=== PATIENT | male | born 1955 | race Caucasian/White ===

== ENCOUNTER 2017-04-14 15:06 | Day surgery (SDC) | payer MEDICAID ==
[2017-04-14] VITALS (10 sets, daily range): BP systolic 94–152; BP diastolic 60–114
[~2017-04-14] VITALS: Ht 160 cm; Wt 53.1 kg
[~2017-04-14 15:06] MED LIST: ALBU8.5H2 IH; ALPR.25T; ALPR0.5T72 PO; AMLO5TAB2; ASP325TEC PO; ASP81CT PO; ASP81TEC PO; ATR20T; BUDE6HFA IH; CARV12.52 PO; CARV3.122 PO; CHANTIX STARTER PACK; CHOL10002; CLOP75TA PO; CLPD75T; CRV25T; D50KC; DAILY MULTIVIT1 EAC4 PO; DOXY100C2 PO; FAMO20TA73; FLUT1DIS26 IH; FLUT1DIS27 IH; FLUT1DIS3 IH; HYDR-34; HYDR1TAB66 PO; IPRA3AMP19 IH; ISM30TCR PO; LISI-594 PO; LISI10TA PO; LISI40TA PO; MIRT15TA6 PO; MONT10TA24 PO; Oxygen; PNT40TEC PO; PRD10T; PRD20T; PRD20T PO; PROP1TAB77; ROFL500T3 PO; SIMV40TA4 PO; TIOT18CA IH; TIOT18CA PO; TRM50TRX
--- OUTSIDE RECORDS SUMMARY | 2017-04-14 15:11 | XMS REPORT ---
Author Author MAYELIN CADENA [facility] eClinicalWorks Address Unknown Phone Unavailable Care Team Providers Care Olive Packer Name Role Phone MAYELIN CADENA CP Unavailable Allergies No Known Allergies Problems Problem Type Condition ICD-9 Code Onset Dates Condition Status Problem Coronary atherosclerosis of unspecified type of vessel, [place] or graft 414.00 Active Problem Insomnia, unspecified 780.52 Active Problem Anxiety state, unspecified 300.00 Active Problem Chronic pain syndrome 338.4 Active Problem Failure to thrive 783.41 Active Medications Medication Code System Code Instructions Start Date End Date Status Dosage Xanax [facility] [address]-92 1 MG Orally 3 times a day NEEDED FOR ANXIETY November 19, 2014 1 tablet Hydrocodone-Acetaminophen [facility] [address]-91 10-325 MG Orally every 6 hrs November 19, 2014 1 tablet as needed Results No Known Results Summary Purpose eClinicalWorks Submission
--- OUTSIDE RECORDS SUMMARY | 2017-04-14 15:11 | XMS REPORT ---
Author Author MAYELIN CADENA [facility] eClinicalWorks Address Unknown Phone Unavailable Care Team Providers Care Asian Studies Professor Name Role Phone MAYELIN CADENA CP Unavailable Allergies, Adverse Reactions, Alerts Substance Reaction Event Type Grapefruit Flavor Info Not Available Drug Allergy Avelox Info Not Available Drug Allergy Problems Problem Type Condition ICD-9 Code Onset Dates Condition Status Assessment Insomnia, unspecified 780.52 Active Problem Coronary atherosclerosis of unspecified type of vessel, [place] or graft 414.00 Active Problem Insomnia, unspecified 780.52 Active Problem Anxiety state, unspecified 300.00 Active Assessment COPD (chronic obstructive pulmonary disease) 496 Active Assessment Coronary atherosclerosis of unspecified type of vessel, [place] or graft 414.00 Active Problem Chronic pain syndrome 338.4 Active Problem Failure to thrive 783.41 Active Medications Medication Code System Code Instructions Start Date End Date Status Dosage Hydrocodone-Acetaminophen [facility] [address]-66 10-325 MG Orally every 6 hrs November 19, 2014 1 tablet as needed Albuterol [facility] 0 2.5 mg /3 mL (0.083 %) Aug 01, 2014 2.5 mg by Inhalation route 4 times per day Aspirin [facility] 85392-[address]66 81 mg November 08, 2011 take 1 tablet (81 mg ) by oral route once daily Isosorbide Mononitrate CR [facility] [address]-67 30 MG Orally Once a day 1 tablet Simvastatin [facility] [address]-31 40 MG Orally Once a day 1 tablet in the evening Sertraline HCl [facility] [address]-11 50 MG Orally Once a day 1 tablet Plavix [facility] [address]-60 75 MG Orally Once a day 1 tablet Coreg [facility] [address]-55 12.5 mg Apr 23, 2012 1 tablet by Oral route 2 times per day Seroquel XR [facility] [address]-68 50 MG 1 tablet in the evening ProAir HFA [facility] [address]-56 108 (90 Base) MCG/ACT Inhalation every 4 hrs 2 puffs as needed Xanax [facility] [address]-03 1 MG Orally 3 times a day NEEDED FOR ANXIETY November 19, 2014 1 tablet Oxygen ND 0 2 LPM prn at bedtime not defined Lisinopril [facility] [address]-03 10 MG Orally Once a day 1 tablet Symbicort [facility] [address]-97 160 mcg-4.5 mcg/inh Sep 07, 2013 2 puffs by Inhalation route 2 times per day Spiriva HandiHaler [facility] [address]-01 18 MCG Inhalation Once a day December 11, 2014 1 capsule Zantac [facility] [address]-84 150 MG Orally Twice a day 1 tablet Procedures Procedure Coding System Code Date Office Visit, Est Pt., Level 3 CPT-4 73158 Feb 27, 2015 Vital Signs Date/Time: Feb 27, 2015 Temperature 97.6 F Weight 110.4 lbs Height 68 in BMI 16.78 Index Blood Pressure Diastolic 74 mmHg Blood Pressure Systolic 118 mmHg Cardiac Monitoring Heart Rate 82 bpm Results No Known Results Summary Purpose eClinicalWorks Submission
--- OUTSIDE RECORDS SUMMARY | 2017-04-14 15:11 | XMS REPORT ---
Author Author MAYELIN CADENA [facility] eClinicalWorks Address Unknown Phone Unavailable Care Team Providers Care Funeral Director And Embalmer Name Role Phone MAYELIN CADENA CP Unavailable Allergies No Known Allergies Problems Problem Type Condition Code Onset Dates Condition Status Problem Chronic pain syndrome G89.4 Active Problem Anxiety state, unspecified 300.00 Active Problem Anxiety disorder, unspecified F41.9 Active Problem Chronic pain syndrome 338.4 Active Problem Failure to thrive 783.41 Active Problem Coronary atherosclerosis of unspecified type of vessel, [place] or graft 414.00 Active Problem Insomnia, unspecified 780.52 Active Medications Medication Code System Code Instructions Start Date End Date Status Dosage Hydrocodone-Acetaminophen [facility] [address]-28 10-325 MG Orally every 6 hrs November 19, 2014 1 tablet as needed Xanax [facility] [address]-09 1 MG Orally 3 times a day November 19, 2014 1 tablet as needed Results No Known Results Summary Purpose eClinicalWorks Submission
--- OUTSIDE RECORDS SUMMARY | 2017-04-14 15:11 | XMS REPORT ---
Author Author MAYELIN CADENA [facility] eClinicalWorks Address Unknown Phone Unavailable Care Team Providers Care Motel Operator Name Role Phone MAYELIN CADENA CP Unavailable Allergies No Known Allergies Problems Problem Type Condition Code Onset Dates Condition Status Problem Coronary atherosclerosis of unspecified type of vessel, [place] or graft 414.00 Active Problem Insomnia, unspecified 780.52 Active Problem Anxiety state, unspecified 300.00 Active Problem Chronic pain syndrome 338.4 Active Problem Failure to thrive 783.41 Active Medications No Known Medications Results No Known Results Summary Purpose eClinicalWorks Submission
--- OUTSIDE RECORDS SUMMARY | 2017-04-14 15:11 | XMS REPORT ---
Author Author MAYELIN CADENA [facility] eClinicalWorks Address Unknown Phone Unavailable Care Team Providers Care Crane Hooker Name Role Phone MAYELIN CADENA CP Unavailable Allergies No Known Allergies Problems Problem Type Condition Code Onset Dates Condition Status Problem Coronary atherosclerosis of unspecified type of vessel, [place] or graft 414.00 Active Problem Insomnia, unspecified 780.52 Active Problem Anxiety state, unspecified 300.00 Active Problem Chronic pain syndrome 338.4 Active Problem Failure to thrive 783.41 Active Medications Medication Code System Code Instructions Start Date End Date Status Dosage Amoxicillin [facility] [address]-76 500 MG Orally Twice a day Jul 03, 2015 Jul 13, 2015 2 tablets Results No Known Results Summary Purpose eClinicalWorks Submission
--- OUTSIDE RECORDS SUMMARY | 2017-04-14 15:11 | XMS REPORT ---
Author Author MAYELIN CADENA [facility] eClinicalWorks Address Unknown Phone Unavailable Care Team Providers Care Accounting Auditor Name Role Phone MAYELIN CADENA CP Unavailable Allergies No Known Allergies Problems Problem Type Condition Code Onset Dates Condition Status Problem Chronic pain syndrome G89.4 Active Problem Anxiety state, unspecified 300.00 Active Problem Anxiety disorder, unspecified F41.9 Active Problem Chronic pain syndrome 338.4 Active Problem Failure to thrive 783.41 Active Problem Coronary atherosclerosis of unspecified type of vessel, [place] or graft 414.00 Active Problem Insomnia, unspecified 780.52 Active Medications Medication Code System Code Instructions Start Date End Date Status Dosage Albuterol NDC 0 2.5 mg /3 mL (0.083 %) Aug 01, 2014 2.5 mg by Inhalation route 4 times per day Results No Known Results Summary Purpose eClinicalWorks Submission
--- OUTSIDE RECORDS SUMMARY | 2017-04-14 15:11 | XMS REPORT ---
Author Author MAYELIN CADENA [facility] eClinicalWorks Address Unknown Phone Unavailable Care Team Providers Care Photographic Editor Name Role Phone MAYELIN CADENA Unavailable Allergies No Known Allergies Problems Problem Type Condition Code Onset Dates Condition Status Assessment Chronic pain syndrome G89.4 Active Problem Failure to thrive 783.41 Active Assessment Anxiety disorder, unspecified F41.9 Active Problem Anxiety disorder, unspecified F41.9 Active Problem Chronic pain syndrome G89.4 Active Problem COPD exacerbation J44.1 Active Problem Insomnia, unspecified 780.52 Active Problem Chronic pain syndrome 338.4 Active Problem Anxiety state, unspecified 300.00 Active Problem Coronary atherosclerosis of unspecified type of vessel, [place] or graft 414.00 Active Medications Medication Code System Code Instructions Start Date End Date Status Dosage Xanax [facility] [address]-05 1 MG Orally 3 times a day November 19, 2014 1 tablet as needed Lisinopril [facility] [address]-28 10 MG Orally Once a day 1 tablet Oxygen ND 0 2 LPM prn at bedtime not defined Simvastatin [facility] [address]-42 40 MG Orally Once a day 1 tablet in the evening Albuterol Sulfate [facility] 20898223497 0.83 USE 1 VIAL IN NEBULIZER FOUR TIMES DAILY Aspirin [facility] [address]44 81 mg November 08, 2011 take 1 tablet (81 mg ) by oral route once daily Coreg [facility] [address]-35 12.5 mg Apr 23, 2012 1 tablet by Oral route 2 times per day Sertraline HCl [facility] [address]-89 50 MG Orally Once a day 1 tablet Hydrocodone-Acetaminophen [facility] [address]-21 10-325 MG Orally every 6 hrs Jun 01, 2016 1 tablet as needed Spiriva HandiHaler [facility] 74345305673 18 MCG Inhalation Once a day 1 capsule Symbicort [facility] 06925365055 160-4.5 MCG INHALE 2 PUFFS BY MOUTH TWICE DAILY Zantac [facility] [address]-68 150 MG Orally Twice a day 1 tablet ProAir HFA [facility] [address]-10 108 (90 Base) MCG/ACT Inhalation every 4 hrs 2 puffs as needed Seroquel XR [facility] [address]-72 50 mg 1 TABLET IN THE EVENING ONCE A DAY ORALLY 30 DAYS Zofran [facility] [address]-35 4 MG Orally 3 times a day prn nausea Sep 04, 2015 1 tablet Isosorbide Mononitrate CR [facility] [address]-79 30 MG Orally Once a day 1 tablet Results No Known Results Summary Purpose eClinicalWorks Submission
--- OUTSIDE RECORDS SUMMARY | 2017-04-14 15:11 | XMS REPORT ---
Author Author MAYELIN CADENA [facility] eClinicalWorks Address Unknown Phone Unavailable Care Team Providers Care Emergency Room Doctor Name Role Phone MAYELIN CADENA CP Unavailable Allergies, Adverse Reactions, Alerts Substance Reaction Event Type Grapefruit Flavor Info Not Available Drug Allergy Avelox Info Not Available Drug Allergy Problems Problem Type Condition Code Onset Dates Condition Status Assessment COPD exacerbation J44.1 Active Problem Failure to thrive 783.41 Active Assessment Chronic pain syndrome G89.4 Active Problem Anxiety disorder, unspecified F41.9 Active Problem Chronic pain syndrome G89.4 Active Problem COPD exacerbation J44.1 Active Problem Insomnia, unspecified 780.52 Active Problem Chronic pain syndrome 338.4 Active Problem Anxiety state, unspecified 300.00 Active Problem Coronary atherosclerosis of unspecified type of vessel, [place] or graft 414.00 Active Medications Medication Code System Code Instructions Start Date End Date Status Dosage Zofran [facility] [address]-08 4 MG Orally 3 times a day prn nausea Sep 04, 2015 1 tablet Albuterol Sulfate [facility] 52887044579 0.83 USE 1 VIAL IN NEBULIZER FOUR TIMES DAILY Spiriva HandiHaler [facility] 71202302164 18 MCG Inhalation Once a day 1 capsule Isosorbide Mononitrate CR [facility] [address]-03 30 MG Orally Once a day 1 tablet Symbicort [facility] 52134914490 160-4.5 MCG INHALE 2 PUFFS BY MOUTH TWICE DAILY Sertraline HCl [facility] [address]-71 50 MG Orally Once a day 1 tablet Coreg [facility] [address]-85 12.5 mg Apr 23, 2012 1 tablet by Oral route 2 times per day Aspirin [facility] [address]78-[address]25 81 mg November 08, 2011 take 1 tablet (81 mg ) by oral route once daily ProAir HFA [facility] [address]-80 108 (90 Base) MCG/ACT Inhalation every 4 hrs 2 puffs as needed Simvastatin [facility] [address]-95 40 MG Orally Once a day 1 tablet in the evening Seroquel XR [facility] [address]-22 50 mg 1 TABLET IN THE EVENING ONCE A DAY ORALLY 30 DAYS Oxygen NDC 0 2 LPM prn at bedtime not defined Lisinopril [facility] [address]-27 10 MG Orally Once a day 1 tablet Hydrocodone-Acetaminophen [facility] [address]-80 10-325 MG Orally every 6 hrs November 19, 2014 1 tablet as needed Xanax [facility] [address]-09 1 MG Orally 3 times a day November 19, 2014 1 tablet as needed Zantac [facility] [address]-62 150 MG Orally Twice a day 1 tablet Procedures Procedure Coding System Code Date Office Visit, Est Pt., Level 3 CPT-4 69892 May 20, 2016 Vital Signs Date/Time: May 20, 2016 Cardiac Monitoring Heart Rate 72 bpm Weight 114.8 lbs Height 68 in BMI 17.45 Index Blood Pressure Diastolic 82 mmHg Blood Pressure Systolic 118 mmHg Results No Known Results Summary Purpose eClinicalWorks Submission
--- OUTSIDE RECORDS SUMMARY | 2017-04-14 15:11 | XMS REPORT ---
Author Author MAYELIN CADENA [facility] eClinicalWorks Address Unknown Phone Unavailable Care Team Providers Care Depositing Machine Operator Name Role Phone MAYELIN CADENA CP Unavailable Allergies No Known Allergies Problems Problem Type Condition Code Onset Dates Condition Status Problem Coronary atherosclerosis of unspecified type of vessel, [place] or graft 414.00 Active Problem Insomnia, unspecified 780.52 Active Problem Anxiety state, unspecified 300.00 Active Problem Chronic pain syndrome 338.4 Active Problem Failure to thrive 783.41 Active Medications Medication Code System Code Instructions Start Date End Date Status Dosage Xanax [facility] [address]-32 1 MG Orally 3 times a day NEEDED FOR ANXIETY November 19, 2014 1 tablet Hydrocodone-Acetaminophen [facility] [address]-14 10-325 MG Orally every 6 hrs November 19, 2014 1 tablet as needed Results No Known Results Summary Purpose eClinicalWorks Submission
--- OUTSIDE RECORDS SUMMARY | 2017-04-14 15:11 | XMS REPORT ---
Author Author MAYELIN CADENA Organization [facility] Address [address] [place] [address] Care Team Providers Care Global Technical Writer Name Role Phone MAYELIN CADENA Unavailable PROBLEMS Type Condition ICD9-CM Code [id number] Code Onset Dates Condition Status SNOMED Code Problem Insomnia, unspecified G47.00 Active 227350937 Problem Chronic obstructive pulmonary disease, unspecified J44.9 Active 56407702 Problem Chronic pain syndrome G89.4 Active 655337034 Problem Coronary artery disease involving [place] coronary artery of koi heart without angina pectoris I25.10 Active 7013180485630 Problem COPD exacerbation J44.1 Active 239762455 Problem Anxiety disorder, unspecified F41.9 Active 063011806 ALLERGIES No Information SOCIAL HISTORY Never Assessed PLAN OF CARE VITAL SIGNS MEDICATIONS Medication Instructions Dosage Frequency Start Date End Date Duration Status Levaquin 500 MG Orally Once a day 1 tablet 24h Sep, Sep, 10 days Active RESULTS No Results PROCEDURES No Known procedures IMMUNIZATIONS No Known Immunizations MEDICAL (GENERAL) HISTORY Type Description Date Medical History hearing loss Medical History hx of multiple heart attacks Medical History hypertension Medical History heart disease-multiple MIs Medical History chronic obstructive pulmonary disease (COPD) Medical History hernia-hiatal Surgical History Echo-Dr. Mueller 11/10/2010 Surgical History Stress test-Dr. Mueller 10/25/2012 Surgical History Abnormal stress test 03/13/2014 Hospitalization History no hospitalizations other than surgeries Hospitalization History [facility] for COPD exacerbation 04/25
--- OUTSIDE RECORDS SUMMARY | 2017-04-14 15:11 | XMS REPORT ---
Author Author MAYELIN CADENA [facility] eClinicalWorks Address Unknown Phone Unavailable Care Team Providers Care Telephone Clerk Name Role Phone MAYELIN CADENA CP Unavailable Allergies No Known Allergies Problems Problem Type Condition Code Onset Dates Condition Status Problem Coronary atherosclerosis of unspecified type of vessel, [place] or graft 414.00 Active Problem Insomnia, unspecified 780.52 Active Problem Anxiety state, unspecified 300.00 Active Problem Chronic pain syndrome 338.4 Active Problem Failure to thrive 783.41 Active Medications Medication Code System Code Instructions Start Date End Date Status Dosage Xanax [facility] [address]-43 1 MG Orally 3 times a day NEEDED FOR ANXIETY November 19, 2014 1 tablet Hydrocodone-Acetaminophen [facility] [address]-92 10-325 MG Orally every 6 hrs November 19, 2014 1 tablet as needed Results No Known Results Summary Purpose eClinicalWorks Submission
--- OUTSIDE RECORDS SUMMARY | 2017-04-14 15:12 | XMS REPORT ---
Author Author MAYELIN CADENA [facility] Address [address] [place] [address] Care Team Providers Care Photo Colorer Name Role Phone MAYELIN CADENA Unavailable PROBLEMS Type Condition ICD9-CM Code [id number] Code Onset Dates Condition Status SNOMED Code Problem Insomnia, unspecified G47.00 Active 130199901 Problem Chronic obstructive pulmonary disease, unspecified J44.9 Active 26559929 Problem Chronic pain syndrome G89.4 Active 846328687 Problem Coronary artery disease involving [place] coronary artery of [place] heart without angina pectoris I25.10 Active 9982254823740 Problem COPD exacerbation J44.1 Active 445820148 Problem Anxiety disorder, unspecified F41.9 Active 727224609 ALLERGIES Unknown Allergies SOCIAL HISTORY No smoking Hx information available PLAN OF CARE VITAL SIGNS MEDICATIONS Medication Instructions Dosage Frequency Start Date End Date Duration Status Hydrocodone-Acetaminophen 10-325 MG Orally every 6 hrs 1 tablet as needed 6h Jul, 28 days Active Xanax 1 MG Orally 3 times a day 1 tablet as needed 8h November, 28 days Active RESULTS No Results PROCEDURES No Known procedures IMMUNIZATIONS No Known Immunizations
--- OUTSIDE RECORDS SUMMARY | 2017-04-14 15:12 | XMS REPORT ---
Author Author MAYELIN CADENA [facility] eClinicalWorks Address Unknown Phone Unavailable Care Team Providers Care Back Tender Cloth Printing Name Role Phone MAYELIN CADENA CP Unavailable Allergies No Known Allergies Problems Problem Type Condition Code Onset Dates Condition Status Problem Chronic pain syndrome G89.4 Active Problem Anxiety state, unspecified 300.00 Active Problem Anxiety disorder, unspecified F41.9 Active Problem Chronic pain syndrome 338.4 Active Problem Failure to thrive 783.41 Active Problem Coronary atherosclerosis of unspecified type of vessel, [place] or graft 414.00 Active Problem Insomnia, unspecified 780.52 Active Medications Medication Code System Code Instructions Start Date End Date Status Dosage Levaquin [facility] [address]-03 500 MG Orally Once a day Apr 27, 2016 May 07, 2016 1 tablet Results No Known Results Summary Purpose eClinicalWorks Submission
--- OUTSIDE RECORDS SUMMARY | 2017-04-14 15:12 | XMS REPORT ---
Author Author MAYELIN CADENA [facility] eClinicalWorks Address Unknown Phone Unavailable Care Team Providers Care Pe Electrical Engineer Name Role Phone MAYELIN CADENA CP Unavailable Allergies No Known Allergies Problems Problem Type Condition Code Onset Dates Condition Status Problem Chronic pain syndrome G89.4 Active Problem Anxiety state, unspecified 300.00 Active Problem Anxiety disorder, unspecified F41.9 Active Problem Chronic pain syndrome 338.4 Active Problem Failure to thrive 783.41 Active Problem Coronary atherosclerosis of unspecified type of vessel, [place] or graft 414.00 Active Problem Insomnia, unspecified 780.52 Active Medications Medication Code System Code Instructions Start Date End Date Status Dosage Hydrocodone-Acetaminophen [facility] [address]-82 10-325 MG Orally every 6 hrs November 19, 2014 1 tablet as needed Xanax [facility] [address]-22 1 MG Orally 3 times a day November 19, 2014 1 tablet as needed Results No Known Results Summary Purpose eClinicalWorks Submission
--- OUTSIDE RECORDS SUMMARY | 2017-04-14 15:12 | XMS REPORT ---
Author Author MAYELIN CADENA [facility] eClinicalWorks Address Unknown Phone Unavailable Care Team Providers Care Engineering Project Manager Name Role Phone MAYELIN CADENA CP Unavailable Allergies No Known Allergies Problems Problem Type Condition Code Onset Dates Condition Status Problem Coronary atherosclerosis of unspecified type of vessel, [place] or graft 414.00 Active Problem Insomnia, unspecified 780.52 Active Problem Anxiety state, unspecified 300.00 Active Problem Chronic pain syndrome 338.4 Active Problem Failure to thrive 783.41 Active Medications Medication Code System Code Instructions Start Date End Date Status Dosage Hydrocodone-Acetaminophen [facility] [address]-19 10-325 MG Orally every 6 hrs November 19, 2014 1 tablet as needed Xanax [facility] [address]-76 1 MG Orally 3 times a day NEEDED FOR ANXIETY November 19, 2014 1 tablet Results No Known Results Summary Purpose eClinicalWorks Submission
--- OUTSIDE RECORDS SUMMARY | 2017-04-14 15:12 | XMS REPORT ---
Author Author MAYELIN CADENA [facility] Address [address] [place] [address] Care Team Providers Care Food Service Worker Name Role Phone MAYELIN CADENA Unavailable PROBLEMS Type Condition ICD9-CM Code JCK73-EZ Code Onset Dates Condition Status SNOMED Code Problem Chronic obstructive pulmonary disease, unspecified J44.9 Active 74570061 Problem Insomnia, unspecified G47.00 Active 284957380 Problem Chronic pain syndrome G89.4 Active 877769239 Problem Coronary artery disease involving [place] coronary artery of [place] heart without angina pectoris I25.10 Active 3075978730715 Problem COPD exacerbation J44.1 Active 165005038 Problem Anxiety disorder, unspecified F41.9 Active 110118327 ALLERGIES No Known Allergies SOCIAL HISTORY No smoking Hx information available PLAN OF CARE VITAL SIGNS MEDICATIONS No Known Medications RESULTS Name Result Date Reference Range [employer] 2016-06-30 PROCEDURES No Known procedures IMMUNIZATIONS No Known Immunizations
--- OUTSIDE RECORDS SUMMARY | 2017-04-14 15:12 | XMS REPORT ---
Author Author MAYELIN CADENA [facility] eClinicalWorks Address Unknown Phone Unavailable Care Team Providers Care Wood Finisher Apprentice Name Role Phone MAYELIN CADENA CP Unavailable Allergies No Known Allergies Problems Problem Type Condition Code Onset Dates Condition Status Problem Coronary atherosclerosis of unspecified type of vessel, [place] or graft 414.00 Active Problem Insomnia, unspecified 780.52 Active Problem Anxiety state, unspecified 300.00 Active Problem Chronic pain syndrome 338.4 Active Problem Failure to thrive 783.41 Active Medications Medication Code System Code Instructions Start Date End Date Status Dosage Hydrocodone-Acetaminophen [facility] [address]-48 10-325 MG Orally every 6 hrs November 19, 2014 1 tablet as needed Xanax [facility] [address]-85 1 MG Orally 3 times a day NEEDED FOR ANXIETY November 19, 2014 1 tablet Results No Known Results Summary Purpose eClinicalWorks Submission
--- OUTSIDE RECORDS SUMMARY | 2017-04-14 15:12 | XMS REPORT ---
Author Author MAYELIN CADENA [facility] Address [address] [place] [address] Care Team Providers Care Cut Off Saw Operator Name Role Phone MAYELIN CADENA Unavailable PROBLEMS Type Condition ICD9-CM Code [id number] Code Onset Dates Condition Status SNOMED Code Problem Chronic obstructive pulmonary disease, unspecified J44.9 Active 31947155 Problem Insomnia, unspecified G47.00 Active 041716808 Problem Chronic pain syndrome G89.4 Active 775510765 Problem Coronary artery disease involving [place] coronary artery of [place] heart without angina pectoris I25.10 Active 5941576551505 Problem COPD exacerbation J44.1 Active 432412593 Problem Anxiety disorder, unspecified F41.9 Active 965563605 ALLERGIES No Known Allergies SOCIAL HISTORY No smoking Hx information available PLAN OF CARE VITAL SIGNS MEDICATIONS Medication Instructions Dosage Frequency Start Date End Date Duration Status Xanax 1 MG Orally 3 times a day 1 tablet as needed 8h November, 28 days Active Hydrocodone-Acetaminophen 10-325 MG Orally every 6 hrs 1 tablet as needed 6h Jun, 28 days Active RESULTS No Results PROCEDURES No Known procedures IMMUNIZATIONS No Known Immunizations
--- OUTSIDE RECORDS SUMMARY | 2017-04-14 15:12 | XMS REPORT ---
Author Author MAYELIN CADENA Organization [facility] Address [address] [place] [address] Care Team Providers Care Senior Statistician Name Role Phone MAYELIN CADENA Unavailable PROBLEMS Type Condition ICD9-CM Code [id number] Code Onset Dates Condition Status SNOMED Code Problem Insomnia, unspecified G47.00 Active 783379437 Problem Chronic obstructive pulmonary disease, unspecified J44.9 Active 34098422 Problem Chronic pain syndrome G89.4 Active 140681328 Problem Coronary artery disease involving [place] coronary artery of [place] heart without angina pectoris I25.10 Active 6608224874711 Problem COPD exacerbation J44.1 Active 667416654 Problem Anxiety disorder, unspecified F41.9 Active 858008828 ALLERGIES No Information SOCIAL HISTORY Never Assessed PLAN OF CARE VITAL SIGNS MEDICATIONS Medication Instructions Dosage Frequency Start Date End Date Duration Status Advair Diskus 500-50 MCG/DOSE Inhalation Twice a day 1 puff 12h 20 Aug, 2016 Active RESULTS No Results PROCEDURES No Known [...]
--- OUTSIDE RECORDS SUMMARY | 2017-04-14 15:12 | XMS REPORT ---
Author Author MAYELIN CADENA Organization [facility] Address [address] [place] [address] Care Team Providers Care Press Operator Apprentice Name Role Phone MAYELIN CADENA Unavailable PROBLEMS Type Condition ICD9-CM Code [id number] Code Onset Dates Condition Status SNOMED Code Problem Insomnia, unspecified G47.00 Active 347272047 Problem Chronic obstructive pulmonary disease, unspecified J44.9 Active 33092006 Problem Chronic pain syndrome G89.4 Active 917844195 Problem Coronary artery disease involving [place] coronary artery of [place] heart without angina pectoris I25.10 Active 0190050675377 Problem COPD exacerbation J44.1 Active 934391470 Problem Anxiety disorder, unspecified F41.9 Active 162123298 ALLERGIES No Information SOCIAL HISTORY Never Assessed PLAN OF CARE VITAL SIGNS MEDICATIONS Medication Instructions Dosage Frequency Start Date End Date Duration Status Xanax 1 MG Orally 3 times a day 1 tablet as needed 8h November, 28 days Active Hydrocodone-Acetaminophen 10-325 MG Orally every 6 hrs 1 tablet as needed 6h Sep, 28 days Active RESULTS No Results PROCEDURES [...]
--- OUTSIDE RECORDS SUMMARY | 2017-04-14 15:12 | XMS REPORT ---
Author Author MAYELIN CADENA [facility] Address [address] [place] [address] Care Team Providers Care Optical Laboratory Mechanic Name Role Phone MAYELIN CADENA Unavailable PROBLEMS Type Condition ICD9-CM Code ARY85-RX Code Onset Dates Condition Status SNOMED Code Problem Failure to thrive 783.41 Active 41676896 Problem Anxiety disorder, unspecified F41.9 Active 039287287 Problem Chronic pain syndrome G89.4 Active 366955516 Problem Insomnia, unspecified 780.52 Active 315305786 Problem Chronic pain syndrome 338.4 Active 844606210 Problem Anxiety state, unspecified 300.00 Active 490654668 Problem Coronary atherosclerosis of unspecified type of vessel, [place] or graft 414.00 Active 82221879 ALLERGIES Unknown Allergies SOCIAL HISTORY No smoking Hx information available PLAN OF CARE VITAL SIGNS MEDICATIONS Medication Instructions Dosage Frequency Start Date End Date Duration Status Xanax 1 MG Orally 3 times a day 1 tablet as needed 8h November, 28 days Active Hydrocodone-Acetaminophen 10-325 MG Orally every 6 hrs 1 tablet as needed 6h November, 28 days Active RESULTS No Results PROCEDURES No Known procedures IMMUNIZATIONS No Known Immunizations
--- OUTSIDE RECORDS SUMMARY | 2017-04-14 15:12 | XMS REPORT ---
Author Author MAYELIN CADENA Organization [facility] Address [address] [place] [address] Care Team Providers Care Forest And Conservation Worker Name Role Phone MAYELIN CADENA Unavailable PROBLEMS Type Condition ICD9-CM Code NGI24-ZU Code Onset Dates Condition Status SNOMED Code Problem Insomnia, unspecified G47.00 Active 355162584 Problem Chronic obstructive pulmonary disease, unspecified J44.9 Active 13364747 Problem Chronic pain syndrome G89.4 Active 156035757 Problem Coronary artery disease involving [place] coronary artery of [place] heart without angina pectoris I25.10 Active 7253594362630 Problem COPD exacerbation J44.1 Active 107605895 Problem Anxiety disorder, unspecified F41.9 Active 877813137 ALLERGIES No Information SOCIAL HISTORY Never Assessed PLAN OF CARE VITAL SIGNS MEDICATIONS Medication Instructions Dosage Frequency Start Date End Date Duration Status Xanax 1 MG Orally 3 times a day 1 tablet as needed 8h November, 28 days Active Hydrocodone-Acetaminophen 10-325 MG Orally every 6 hrs 1 tablet as needed 6h Aug, 28 days Active RESULTS No Results PROCEDURES [...]
--- OUTSIDE RECORDS SUMMARY | 2017-04-14 15:12 | XMS REPORT ---
Author Author MAYELIN CADENA [facility] eClinicalWorks Address Unknown Phone Unavailable Care Team Providers Care Delicatessen Clerk Name Role Phone MAYELIN CADENA CP Unavailable Allergies No Known Allergies Problems Problem Type Condition Code Onset Dates Condition Status Problem Anxiety state, unspecified 300.00 Active Problem Coronary atherosclerosis of unspecified type of vessel, [place] or graft 414.00 Active Problem Chronic pain syndrome G89.4 Active Problem Failure to thrive 783.41 Active Problem Insomnia, unspecified 780.52 Active Problem Chronic pain syndrome 338.4 Active Medications Medication Code System Code Instructions Start Date End Date Status Dosage Seroquel XR [facility] [address]-97 50 mg Orally Once a day 1 tablet in the evening Results No Known Results Summary Purpose eClinicalWorks Submission
--- OUTSIDE RECORDS SUMMARY | 2017-04-14 15:12 | XMS REPORT ---
Author Author MAYELIN CADENA [facility] eClinicalWorks Address Unknown Phone Unavailable Care Team Providers Care Missile Inspector Name Role Phone MAYELIN CADENA CP Unavailable Allergies No Known Allergies Problems Problem Type Condition Code Onset Dates Condition Status Problem Chronic pain syndrome G89.4 Active Problem Anxiety state, unspecified 300.00 Active Problem Anxiety disorder, unspecified F41.9 Active Problem Chronic pain syndrome 338.4 Active Problem Failure to thrive 783.41 Active Problem Coronary atherosclerosis of unspecified type of vessel, [place] or graft 414.00 Active Problem Insomnia, unspecified 780.52 Active Medications Medication Code System Code Instructions Start Date End Date Status Dosage Hydrocodone-Acetaminophen [facility] [address]-23 10-325 MG Orally every 6 hrs November 19, 2014 1 tablet as needed Xanax [facility] [address]-67 1 MG Orally 3 times a day November 19, 2014 1 tablet as needed Results No Known Results Summary Purpose eClinicalWorks Submission
--- OUTSIDE RECORDS SUMMARY | 2017-04-14 15:12 | XMS REPORT ---
Author Author MAYELIN CADENA [facility] eClinicalWorks Address Unknown Phone Unavailable Care Team Providers Care Drier Transfer Car Operator Name Role Phone MAYELIN CADENA CP Unavailable Allergies No Known Allergies Problems Problem Type Condition Code Onset Dates Condition Status Problem Chronic pain syndrome G89.4 Active Problem Anxiety state, unspecified 300.00 Active Problem Anxiety disorder, unspecified F41.9 Active Problem Chronic pain syndrome 338.4 Active Problem Failure to thrive 783.41 Active Problem Coronary atherosclerosis of unspecified type of vessel, [place] or graft 414.00 Active Problem Insomnia, unspecified 780.52 Active Medications No Known Medications Results No Known Results Summary Purpose eClinicalWorks Submission
--- OUTSIDE RECORDS SUMMARY | 2017-04-14 15:12 | XMS REPORT ---
Author Author MAYELIN CADENA [facility] eClinicalWorks Address Unknown Phone Unavailable Care Team Providers Care Warehouse Receiving Supervisor Name Role Phone MAYELIN CADENA CP Unavailable Allergies, Adverse Reactions, Alerts Substance Reaction Event Type Grapefruit Flavor Info Not Available Drug Allergy Avelox Info Not Available Drug Allergy Problems Problem Type Condition Code Onset Dates Condition Status Assessment Other chronic pain G89.29 Active Assessment Encounter for immunization Z23 Active Problem Coronary atherosclerosis of unspecified type of vessel, [place] or graft 414.00 Active Problem Insomnia, unspecified 780.52 Active Problem Anxiety state, unspecified 300.00 Active Assessment Chronic bronchitis, unspecified chronic bronchitis type J42 Active Assessment Coronary artery disease without angina pectoris, unspecified vessel or lesion type, unspecified whether [place] or transplanted heart I25.10 Active Problem Chronic pain syndrome 338.4 Active Problem Failure to thrive 783.41 Active Medications Medication Code System Code Instructions Start Date End Date Status Dosage Symbicort [facility] 93679325547 160-4.5 MCG/ACT INHALE 2 PUFFS BY MOUTH TWICE DAILY Seroquel XR [facility] [address]-98 50 MG 1 tablet in the evening Simvastatin [facility] [address]-27 40 MG Orally Once a day 1 tablet in the evening Zantac [facility] [address]-11 150 MG Orally Twice a day 1 tablet Lisinopril [facility] [address]-82 10 MG Orally Once a day 1 tablet Xanax [facility] [address]-19 1 MG Orally 3 times a day NEEDED FOR ANXIETY November 19, 2014 1 tablet Coreg [facility] [address]-62 12.5 mg Apr 23, 2012 1 tablet by Oral route 2 times per day Aspirin [facility] 66571-77716 81 mg November 08, 2011 take 1 tablet (81 mg ) by oral route once daily Oxygen NDC 0 2 LPM prn at bedtime not defined Sertraline HCl [facility] [address]-46 50 MG Orally Once a day 1 tablet Spiriva HandiHaler [facility] 34955036979 18 MCG Inhalation Once a day 1 capsule ProAir HFA [facility] [address]-12 108 (90 Base) MCG/ACT Inhalation every 4 hrs 2 puffs as needed Albuterol [facility] 0 2.5 mg /3 mL (0.083 %) Aug 01, 2014 2.5 mg by Inhalation route 4 times per day Hydrocodone-Acetaminophen [facility] [address]-82 10-325 MG Orally every 6 hrs November 19, 2014 1 tablet as needed Isosorbide Mononitrate CR [facility] [address]-62 30 MG Orally Once a day 1 tablet Procedures Procedure Coding System Code Date Office Visit, Est Pt., Level 3 CPT-4 22614 May 08, 2015 FLUARIX QUAD (3 & UP)-Smart Checkout-2014 CPT-4 29598 May 08, 2015 MEASURE BLOOD OXYGEN LEVEL CPT-4 51512 May 08, 2015 SINGLE IMMUNIZATION ADMIN CPT-4 20425 May 08, 2015 PCV CPT-4 52722 May 08, 2015 IMMUNIZATION ADMIN, EACH ADD (please include units) CPT-4 31069 May 08, 2015 Vital Signs Date/Time: May 08, 2015 Temperature 99.0 F Weight 108 lbs Height 68 in Oximetry 95 % Blood Pressure Diastolic 84 mmHg Blood Pressure Systolic 118 mmHg Cardiac Monitoring Heart Rate 84 bpm BMI 16.42 Index Results No Known Results Immunizations Vaccine Administration Date FLUARIX QUAD (3 & UP)-GSK-2014May 08, 2015 PCV 13 May 08, 2015 Summary Purpose eClinicalWorks Submission
--- OUTSIDE RECORDS SUMMARY | 2017-04-14 15:12 | XMS REPORT ---
Author Author MAYELIN CADENA [facility] eClinicalWorks Address Unknown Phone Unavailable Care Team Providers Care Furs Salesperson Name Role Phone MAYELIN CADENA CP Unavailable Allergies No Known Allergies Problems Problem Type Condition Code Onset Dates Condition Status Problem Chronic pain syndrome G89.4 Active Problem Anxiety state, unspecified 300.00 Active Problem Anxiety disorder, unspecified F41.9 Active Problem Chronic pain syndrome 338.4 Active Problem Failure to thrive 783.41 Active Problem Coronary atherosclerosis of unspecified type of vessel, [place] or graft 414.00 Active Problem Insomnia, unspecified 780.52 Active Medications Medication Code System Code Instructions Start Date End Date Status Dosage Albuterol NDC 0 2.5 mg /3 mL (0.083 %) Aug 01, 2014 2.5 mg by Inhalation route 4 times per day Results No Known Results Summary Purpose eClinicalWorks Submission
--- OUTSIDE RECORDS SUMMARY | 2017-04-14 15:13 | XMS REPORT ---
Author Author MAYELIN CADENA [facility] eClinicalWorks Address Unknown Phone Unavailable Care Team Providers Care Meat Hanger Name Role Phone MAYELIN CADENA CP Unavailable Allergies No Known Allergies Problems Problem Type Condition Code Onset Dates Condition Status Problem Chronic pain syndrome G89.4 Active Problem Anxiety state, unspecified 300.00 Active Problem Anxiety disorder, unspecified F41.9 Active Problem Chronic pain syndrome 338.4 Active Problem Failure to thrive 783.41 Active Problem Coronary atherosclerosis of unspecified type of vessel, [place] or graft 414.00 Active Problem Insomnia, unspecified 780.52 Active Medications No Known Medications Results No Known Results Summary Purpose eClinicalWorks Submission
--- OUTSIDE RECORDS SUMMARY | 2017-04-14 15:13 | XMS REPORT | Continuity of Care Document ---
Author Author [facility] Organization [facility] Address Unknown Phone Unavailable Allergies Active Description Code Type Severity Reaction Onset Reported/Identified Relationship to Patient Clinical Status Yes Grapefruit Food Allergy 05/18/2011 Yes Grapefruit Food Allergy N/A N/A 05/18/2011 Yes Avelox Drug Allergy N/A N/A 01/07/2014 Yes moxifloxacin [id number] Drug Allergy Unknown N/A 03/13/2014 Medications Problems Date Dx Coded Attending Type Code Diagnosis Diagnosed By 05/08/2008 MAYELIN CADENA APRN 496 CHRONIC OBSTRUCTIVE PULMONARY DISEASE 05/08/2008 MAYELIN CADENA APRN 496 CHRONIC OBSTRUCTIVE PULMONARY DISEASE 05/08/2008 MAYELIN CADENA APRN S 496 CHRONIC OBSTRUCTIVE PULMONARY DISEASE 05/08/2008 496 CHRONIC OBSTRUCTIVE PULMONARY DISEASE 05/08/2008 MAYELIN CADENA APRN S 496 CHRONIC OBSTRUCTIVE PULMONARY DISEASE 05/08/2008 MAYELIN CADENA APRN S 496 CHRONIC OBSTRUCTIVE PULMONARY DISEASE 05/08/2008 OLI SALDANA MD 496 CHRONIC OBSTRUCTIVE PULMONARY DISEASE 05/08/2008 MAYELIN CADENA APRN S 496 CHRONIC OBSTRUCTIVE PULMONARY DISEASE 05/08/2008 MAYELIN CADENA APRN S 496 CHRONIC OBSTRUCTIVE PULMONARY DISEASE 05/08/2008 YARI CADENA APRNA S 496 CHRONIC OBSTRUCTIVE PULMONARY DISEASE 05/08/2008 YARI CADENA APRNA S 496 CHRONIC OBSTRUCTIVE PULMONARY DISEASE 07/02/2008 MAYELIN CADENA APRN S 786.6 SWELLING MASS OR LUMP IN CHEST 07/02/2008 MAYELIN CADENA APRN S 786.6 SWELLING MASS OR LUMP IN CHEST 07/02/2008 MAYELIN CADENA APRN 786.6 SWELLING MASS OR LUMP IN CHEST 07/02/2008 786.6 SWELLING MASS OR LUMP IN CHEST 07/02/2008 TAMMI SEWING MACHINE OPERATOR SEMIAUTOMATIC, MAYELIN S 786.6 SWELLING MASS OR LUMP IN CHEST 07/02/2008 TAMMI SEWING MACHINE OPERATOR SEMIAUTOMATIC, MAYELIN S 786.6 SWELLING MASS OR LUMP IN CHEST 07/02/2008 OLI SALDANA MD 786.6 SWELLING MASS OR LUMP IN CHEST 07/02/2008 TAMMI SEWING MACHINE OPERATOR SEMIAUTOMATIC, MAYELIN S 786.6 SWELLING MASS OR LUMP IN CHEST 07/02/2008 TAMMI SEWING MACHINE OPERATOR SEMIAUTOMATIC, MAYELIN S 786.6 SWELLING MASS OR LUMP IN CHEST 07/02/2008 TAMMI SEWING MACHINE OPERATOR SEMIAUTOMATIC, MAYELIN S 786.6 SWELLING MASS OR LUMP IN CHEST 07/02/2008 TAMMI SEWING MACHINE OPERATOR SEMIAUTOMATIC, MAYELIN S 786.6 SWELLING MASS OR LUMP IN CHEST 11/11/2008 TAMMI SEWING MACHINE OPERATOR SEMIAUTOMATIC, MAYELIN S 041.86 HELICOBACTER PYLORI (H. PYLORI) INFECTION 11/11/2008 TAMMI SEWING MACHINE OPERATOR SEMIAUTOMATIC, MAYELIN S 530.81 ESOPHAGEAL REFLUX 11/11/2008 TAMMI FIELDN, MAYELIN S 041.86 HELICOBACTER PYLORI (H. PYLORI) INFECTION 11/11/2008 TAMMI SEWING MACHINE OPERATOR SEMIAUTOMATIC, MAYELIN S 530.81 ESOPHAGEAL REFLUX 11/11/2008 TAMMI SEWING MACHINE OPERATOR SEMIAUTOMATIC, MAYELIN S 041.86 HELICOBACTER PYLORI (H. PYLORI) INFECTION 11/11/2008 TAMMI SEWING MACHINE OPERATOR SEMIAUTOMATIC, MAYELIN S 530.81 ESOPHAGEAL REFLUX 11/11/2008 041.86 HELICOBACTER PYLORI (H. PYLORI) INFECTION 11/11/2008 530.81 ESOPHAGEAL REFLUX 11/11/2008 TAMMI SEWING MACHINE OPERATOR SEMIAUTOMATIC, MAYELIN S 041.86 HELICOBACTER PYLORI (H. PYLORI) INFECTION 11/11/2008 TAMMI SEWING MACHINE OPERATOR SEMIAUTOMATIC, MAYELIN S 530.81 ESOPHAGEAL REFLUX 11/11/2008 TAMMI SEWING MACHINE OPERATOR SEMIAUTOMATIC, MAYELIN S 041.86 HELICOBACTER PYLORI (H. PYLORI) INFECTION 11/11/2008 TAMMI SEWING MACHINE OPERATOR SEMIAUTOMATIC, MAYELIN S 530.81 ESOPHAGEAL REFLUX 11/11/2008 OLI SALDANA MD 041.86 HELICOBACTER PYLORI (H. PYLORI) INFECTION 11/11/2008 OLI SALDANA MD 530.81 ESOPHAGEAL REFLUX 11/11/2008 TAMMI TEMPLE, MAYELIN S 041.86 HELICOBACTER PYLORI (H. PYLORI) INFECTION 11/11/2008 TAMMI TEMPLE, MAYELIN S 530.81 ESOPHAGEAL REFLUX 11/11/2008 EDITH CADENA APRNNDA S 041.86 HELICOBACTER PYLORI (H. PYLORI) INFECTION 11/11/2008 TAMMI SEWING MACHINE OPERATOR SEMIAUTOMATIC, MAYELIN S 530.81 ESOPHAGEAL REFLUX 11/11/2008 TAMMI SEWING MACHINE OPERATOR SEMIAUTOMATIC, MAYELIN S 041.86 HELICOBACTER PYLORI (H. PYLORI) INFECTION 11/11/2008 TAMMI SEWING MACHINE OPERATOR SEMIAUTOMATIC, MAYELIN S 530.81 ESOPHAGEAL REFLUX 11/11/2008 EDITH CADENA APRNNDA S 041.86 HELICOBACTER PYLORI (H. PYLORI) INFECTION 11/11/2008 TAMMI TEMPLE MAYELIN S 530.81 ESOPHAGEAL REFLUX 11/12/2010 Ot 272.4 HYPERLIPIDEMIA NEC/NOS 11/12/2010 Ot 305.1 TOBACCO USE DISORDER 11/12/2010 Ot 401.9 HYPERTENSION NOS 11/12/2010 Ot 411.1 INTERMED CORONARY SYND 11/12/2010 Ot 414.01 CORONARY ATHEROSCLEROSIS OF [place] CORON 11/12/2010 Ot 428.0 CONGESTIVE HEART FAILURE NOS 11/12/2010 Ot 428.22 CHRONIC SYSTOLIC HRT FAILURE 11/12/2010 Ot 496 CHR AIRWAY OBSTRUCT NEC 11/12/2010 Ot 996.72 OTH COMPLICATIONS DUE TO OTH CARD DEVICE 11/12/2010 Ot V45.82 PERCUTANEOUS TRANSLUM CORON ANGIOPLASTY 04/23/2011 Ot 272.4 HYPERLIPIDEMIA NEC/NOS 04/23/2011 Ot 303.90 ALCOH DEP NEC/NOS-UNSPEC 04/23/2011 Ot 305.1 TOBACCO USE DISORDER 04/23/2011 Ot 401.9 HYPERTENSION NOS 04/23/2011 Ot 414.01 CORONARY ATHEROSCLEROSIS OF [place] CORON 04/23/2011 Ot 416.8 CHR PULMON HEART DIS NEC 04/23/2011 Ot 428.0 CONGESTIVE HEART FAILURE NOS 04/23/2011 Ot 428.22 CHRONIC SYSTOLIC HRT FAILURE 04/23/2011 Ot 491.21 OBSTR CHRONIC BRONCHITIS, W (ACUTE) EXAC 04/23/2011 Ot V04.81 ND FOR PROPHYLACTIC VACCIN AND INOCULATI 04/23/2011 Ot V15.81 HX OF PAST NONCOMPLIANCE 04/23/2011 Ot V45.81 AORTOCORONARY BYPASS 05/18/2011 MAYELIN CADENA APRN S V03.82 Need For Vaccination Pneumococcal 05/18/2011 MAYELIN CADENA APRN S V03.82 Need For Vaccination Pneumococcal 05/18/2011 MAYELIN CADENA APRN S V03.82 Need For Vaccination Pneumococcal 05/18/2011 V03.82 Need For Vaccination Pneumococcal 05/18/2011 MAYELIN CADENA APRN V03.82 Need For Vaccination Pneumococcal 05/18/2011 MAYELIN CADENA APRN V03.82 Need For Vaccination Pneumococcal 05/18/2011 OLI SALDANA MD V03.82 Need For Vaccination Pneumococcal 05/18/2011 MAYELIN CADENA APRN S V03.82 Need For Vaccination Pneumococcal 05/18/2011 MAYELIN CADENA APRN V03.82 Need For Vaccination Pneumococcal 05/18/2011 MAYELIN CADENA APRN S V03.82 Need For Vaccination Pneumococcal 05/18/2011 MAYELIN CADENA APRN S V03.82 Need For Vaccination Pneumococcal 11/02/2011 Ot 272.4 HYPERLIPIDEMIA NEC/NOS 11/02/2011 Ot 305.1 TOBACCO USE DISORDER 11/02/2011 Ot 338.29 OTHER CHRONIC PAIN 11/02/2011 Ot 389.9 HEARING LOSS NOS 11/02/2011 Ot 401.9 HYPERTENSION NOS 11/02/2011 Ot 414.01 CORONARY ATHEROSCLEROSIS OF [place] CORON 11/02/2011 Ot 414.8 CHR ISCHEMIC HRT DIS NEC 11/02/2011 Ot 428.0 CONGESTIVE HEART FAILURE NOS 11/02/2011 Ot 428.22 CHRONIC SYSTOLIC HRT FAILURE 11/02/2011 Ot 491.21 OBSTR CHRONIC BRONCHITIS, W (ACUTE) EXAC 11/02/2011 Ot 571.3 ALCOHOL LIVER DAMAGE NOS 11/02/2011 Ot 780.57 UNSPECIFIED SLEEP APNEA 11/02/2011 Ot V12.61 PERSONAL HISTORY, PNEUMONIA (RECURRENT) 11/02/2011 Ot V45.82 PERCUTANEOUS TRANSLUM CORON ANGIOPLASTY 02/22/2012 MAYELIN CADENA APRN S 338.4 CHRONIC PAIN SYNDROME 02/22/2012 MAYELIN CADENA APRN 338.4 CHRONIC PAIN SYNDROME 02/22/2012 MAYELIN CADENA APRN 338.4 CHRONIC PAIN SYNDROME 02/22/2012 338.4 CHRONIC PAIN SYNDROME 02/22/2012 MAYELIN CADENA APRN 338.4 CHRONIC PAIN SYNDROME 02/22/2012 TAMMI SEWING MACHINE OPERATOR SEMIAUTOMATIC, MAYELIN S 338.4 CHRONIC PAIN SYNDROME 02/22/2012 OLI SALDANA MD 338.4 CHRONIC PAIN SYNDROME 02/22/2012 EDITH CADENA APRNNDA S 338.4 CHRONIC PAIN SYNDROME 02/22/2012 TAMMI TEMPLE, MAYELIN S 338.4 CHRONIC PAIN SYNDROME 02/22/2012 TAMMI TEMPLE, MAYELIN S 338.4 CHRONIC PAIN SYNDROME 02/22/2012 TAMMI TEMPLE, MAYELIN S 338.4 CHRONIC PAIN SYNDROME 05/16/2012 TAMMI TEMPLE, MAYELIN S V04.81 FLU DX (3 YRS AND ABOVE, IM) 05/16/2012 TAMMI TEMPLE, MAYELIN S V04.81 FLU DX (3 YRS AND ABOVE, IM) 05/16/2012 TAMMI TEMPLE, MAYELIN S V04.81 FLU DX (3 YRS AND ABOVE, IM) 05/16/2012 V04.81 FLU DX (3 YRS AND ABOVE, IM) 05/16/2012 TAMMI TEMPLE MAYELIN S V04.81 FLU DX (3 YRS AND ABOVE, IM) 05/16/2012 TAMMI TEMPLE, MAYELIN S V04.81 FLU DX (3 YRS AND ABOVE, IM) 05/16/2012 OLI SALDANA MD V04.81 FLU DX (3 YRS AND ABOVE, IM) 05/16/2012 TAMMI TEMPLE MAYELIN S V04.81 FLU DX (3 YRS AND ABOVE, IM) 05/16/2012 EDITH CADENA APRNNDA S V04.81 FLU DX (3 YRS AND ABOVE, IM) 05/16/2012 TAMMI TEMPLE MAYELIN S V04.81 FLU DX (3 YRS AND ABOVE, IM) 05/16/2012 TAMMI TEMPLE MAYELIN S V04.81 FLU DX (3 YRS AND ABOVE, IM) 08/29/2012 TAMMI TEMPLE MAYELIN S 783.41 FAILURE TO THRIVE 08/29/2012 783.41 FAILURE TO THRIVE 08/29/2012 TAMMI TEMPLE MAYELIN S 783.41 FAILURE TO THRIVE 08/29/2012 EDITH CADENA APRNNDA S 783.41 FAILURE TO THRIVE 08/29/2012 OLI SALDANA MD 783.41 FAILURE TO THRIVE 08/29/2012 MAYELIN CADENA APRN S 783.41 FAILURE TO THRIVE 08/29/2012 MAYELIN CADENA APRN S 783.41 FAILURE TO THRIVE 08/29/2012 MAYELIN CADENA APRN S 783.41 FAILURE TO THRIVE 08/29/2012 MAYELIN CADENA APRN S 783.41 FAILURE TO THRIVE 11/22/2012 SUKUMAR MUELLER MD Ot 272.4 HYPERLIPIDEMIA NEC/NOS 11/22/2012 SUKUMAR MUELLER MD Ot 305.00 ALCOHOL ABUSE-UNSPEC 11/22/2012 SUKUMAR MUELLER MD Ot 305.1 TOBACCO USE DISORDER 11/22/2012 SUKUMAR MUELLER MD Ot 389.9 HEARING LOSS NOS 11/22/2012 SUKUMAR MUELLER MD Ot 401.9 HYPERTENSION NOS 11/22/2012 SUKUMAR MUELLER MD Ot 411.1 INTERMED CORONARY SYND 11/22/2012 SUKUMAR MUELLER MD Ot 414.01 CORONARY ATHEROSCLEROSIS OF [place] CORON 11/22/2012 SUKUMAR MUELLER MD Ot 414.4 CORONARY ATHEROSCLEROSIS DUE TO [place] 11/22/2012 SUKUMAR MUELLER MD Ot 428.0 CONGESTIVE HEART FAILURE NOS 11/22/2012 SUKUMAR MUELLER MD Ot 428.22 CHRONIC SYSTOLIC HRT FAILURE 11/22/2012 SUKUMAR MUELLER MD Ot 496 CHR AIRWAY OBSTRUCT NEC 11/22/2012 SUKUMAR MUELLER MD Ot 794.30 ABN CARDIOVASC STUDY NOS 11/22/2012 SUKUMAR MUELLER MD Ot V15.81 HX OF PAST NONCOMPLIANCE 11/22/2012 SUKUMAR MUELLER MD Ot V45.82 PERCUTANEOUS TRANSLUM CORON ANGIOPLASTY 11/22/2012 SUKUMAR MUELLER MD Ot V46.2 SUPPLEMENTAL OXYGEN 11/22/2012 SUKUMAR MUELLER MD Ot V58.63 LONG-TERM(CURRENT)USE OF ANTIPLATELET/AN 11/22/2012 SUKMUAR MUELLER MD Ot V58.66 LONG-TERM (CURRENT) USE OF ASPIRIN 11/22/2012 SUKUMAR MUELLER MD Ot V58.69 OT MED,LT,CURRENT USE 02/15/2013 TAMMI SEWING MACHINE OPERATOR SEMIAUTOMATIC, MAYELIN S 414.00 CAD 02/15/2013 TAMMI SEWING MACHINE OPERATOR SEMIAUTOMATIC, MAYELIN S 780.52 INSOMNIA UNSPECIFIED 02/15/2013 TAMMI SEWING MACHINE OPERATOR SEMIAUTOMATIC, MAYELIN S 414.00 CAD 02/15/2013 TAMMI SEWING MACHINE OPERATOR SEMIAUTOMATIC, MAYELIN S 780.52 INSOMNIA UNSPECIFIED 02/15/2013 LES CAT, OLI 414.00 CAD 02/15/2013 OLI SALDANA MD 780.52 INSOMNIA UNSPECIFIED 02/15/2013 TAMMI SEWING MACHINE OPERATOR SEMIAUTOMATIC, MAYELIN S 414.00 CAD 02/15/2013 TAMMI SEWING MACHINE OPERATOR SEMIAUTOMATIC, MAYELIN S 780.52 INSOMNIA UNSPECIFIED 02/15/2013 TAMMI SEWING MACHINE OPERATOR SEMIAUTOMATIC, MAYELIN S 414.00 CAD 02/15/2013 TAMMI SEWING MACHINE OPERATOR SEMIAUTOMATIC, MAYELIN S 780.52 INSOMNIA UNSPECIFIED 02/15/2013 TAMMI SEWING MACHINE OPERATOR SEMIAUTOMATIC, MAYELIN S 414.00 CAD 02/15/2013 TAMMI SEWING MACHINE OPERATOR SEMIAUTOMATIC, MAYELIN S 780.52 INSOMNIA UNSPECIFIED 02/15/2013 TAMMI SEWING MACHINE OPERATOR SEMIAUTOMATIC, MAYELIN S 414.00 CAD 02/15/2013 TAMMI SEWING MACHINE OPERATOR SEMIAUTOMATIC, MAYELIN S 780.52 INSOMNIA UNSPECIFIED 03/13/2014 SUKUMAR MUELLER MD Ot 272.4 HYPERLIPIDEMIA NEC/NOS 03/13/2014 SUKUMAR MUELLER MD Ot 305.1 TOBACCO USE DISORDER 03/13/2014 SUKUMAR MUELLER MD Ot 389.9 HEARING LOSS NOS 03/13/2014 SUKUMAR MUELLER MD Ot 401.9 HYPERTENSION NOS 03/13/2014 SUKUMAR MUELLER MD Ot 414.01 CORONARY ATHEROSCLEROSIS OF [place] CORON 03/13/2014 SUKUMAR MUELLER MD Ot 414.4 CORONARY ATHEROSCLEROSIS DUE TO [place] 03/13/2014 SUKUMAR MUELLER MD Ot 416.8 CHR PULMON HEART DIS NEC 03/13/2014 SUKUMAR MUELLER MD Ot 428.0 CONGESTIVE HEART FAILURE NOS 03/13/2014 SUKUMAR MUELLER MD Ot 428.22 CHRONIC SYSTOLIC HRT FAILURE 03/13/2014 SUKUMAR MUELLER MD Ot 496 CHR AIRWAY OBSTRUCT NEC 03/13/2014 SUKUMAR MUELLER MD Ot 794.30 ABN CARDIOVASC STUDY NOS 03/13/2014 SUKUMAR MUELLER MD Ot V45.82 PERCUTANEOUS TRANSLUM CORON ANGIOPLASTY 03/13/2014 SUKUMAR MUELLER MD, Ot V58.69 OT MED,LT,CURRENT USE 04/11/2014 MAYELIN CADENA APRN S 300.00 ANXIETY UNSPEC 04/11/2014 MAYELIN CADENA APRN S 300.00 ANXIETY UNSPEC 02/23/2016 SUKUMAR MUELLER MD Ot E78.2 MIXED HYPERLIPIDEMIA 02/23/2016 SUKUMAR MUELLER MD Ot I10 ESSENTIAL (PRIMARY) HYPERTENSION 02/23/2016 SUKUMAR MUELLER MD Ot I25.10 ATHSCL HEART DISEASE OF [place] CORONARY 02/23/2016 SUKUMAR MUELLER MD Ot I27.2 OTHER SECONDARY PULMONARY HYPERTENSION 02/23/2016 SUKUMAR MUELLER MD Ot R07.9 CHEST PAIN, UNSPECIFIED 02/27/2016 SUKUMAR MUELLER MD Ot R10.9 UNSPECIFIED ABDOMINAL PAIN 02/27/2016 SUKUMAR MUELLER MD Ot R11.0 NAUSEA 02/27/2016 SUKUMAR MUELLER MD Ot R63.4 ABNORMAL WEIGHT LOSS 03/01/2016 Ot 397.0 TRICUSPID VALVE DISEASE 03/01/2016 Ot 401.9 HYPERTENSION NOS 03/01/2016 Ot 414.00 CORON ATHEROSCLER NOS TYPE VESSEL, NATIV 03/01/2016 Ot 424.0 MITRAL VALVE DISORDER 03/01/2016 Ot 428.0 CONGESTIVE HEART FAILURE NOS 03/01/2016 Ot 414.00 CORON ATHEROSCLER NOS TYPE VESSEL, NATIV 03/01/2016 Ot 786.50 CHEST PAIN NOS 03/01/2016 LAVINIA FRANCO Ot 401.9 HYPERTENSION NOS 03/01/2016 LAVINIA FRANCO Ot 414.00 CORON ATHEROSCLER NOS TYPE VESSEL, NATIV 03/01/2016 LAVINIA FRANCO Ot 428.0 CONGESTIVE HEART FAILURE NOS 03/01/2016 LAVINIA FRANCO Ot 496 CHR AIRWAY OBSTRUCT NEC 03/01/2016 SUKUMAR MUELLER MD Ot E78.2 MIXED HYPERLIPIDEMIA 03/01/2016 SUKUMAR MUELLER MD Ot I10 ESSENTIAL (PRIMARY) HYPERTENSION 03/01/2016 SUKUMAR MUELLER MD Ot I25.10 ATHSCL HEART DISEASE OF [place] CORONARY 03/01/2016 SUKUMAR MUELLER MD Ot I27.2 OTHER SECONDARY PULMONARY HYPERTENSION 03/01/2016 SUKUMAR MUELLER MD Ot R07.9 CHEST PAIN, UNSPECIFIED 03/01/2016 SUKUMAR MUELLER MD Ot R10.9 UNSPECIFIED ABDOMINAL PAIN 03/01/2016 SUKUMAR MUELLER MD Ot R11.0 NAUSEA 03/01/2016 SUKUMAR MUELLER MD Ot R63.4 ABNORMAL WEIGHT LOSS 03/30/2016 SUKUMAR MUELLER MD Ot R10.9 UNSPECIFIED ABDOMINAL PAIN 03/30/2016 SUKUMAR MUELLER MD Ot R11.0 NAUSEA 03/30/2016 SUKUMAR MUELLER MD Ot R63.4 ABNORMAL WEIGHT LOSS Procedures Code Description Performed By Performed On 37.22 11/11/2010 88.53 11/11/2010 88.56 11/11/2010 Cardiolog Sukumar Mueller 05/30/2012 52180 MEASURE BLOOD OXYGEN LEVEL 09/13/2012 41150 OXIMETRY - OVERNIGHT 09/28/2012 OtolarAnshu Umanzor 10/12/2013 66267 OXIMETRY 2013 19787 [employer] 2013 71029 [employer] 2013 Results Encounters ACCT No. Visit Date/Time Discharge Status Pt. Type Provider Facility Loc./Unit Complaint [id number] 02/26/2016 08:53:00 2015 23:59:59 CLS Outpatient SUKUMAR MUELLER MD [facility] RAD ABDOMINAL PAIN, NAUSEA [id number] 02/19/2016 14:44:00 2015 23:59:59 CLS Outpatient SUKUMAR MUELLER MD [facility] LAB CAD,CHEST PAIN, HTN,HLP,PULMONARY HTN [id number] 03/13/2014 08:53:00 2013 15:50:00 DIS Outpatient SUKUMAR MUELLER MD [facility] CATH ABNORMAL STRESS, CP,CAD,HTN,COPD [id number] 03/05/2014 09:36:00 2013 23:59:59 CLS Outpatient LAVINIA FRANCO [facility] CARD CAD,CHF,HTN,COPD [id number] 11/22/2012 11:51:00 2012 18:00:00 DIS Outpatient SUKUMAR MUELLER MD [facility] CP,CAD,CHF,ABN STRESS,HTN,HLP, TOBACCOISM [id number] 04/14/2017 15:00:00 PEN Preadmit SUKUMAR MUELLER MD [facility] CP CAD,CHF,HTN [id number] 03/01/2016 13:43:00 Document Registration [id number] 03/01/2016 13:43:00 Document Registration [id number] 10/25/2012 08:21:00 Document Registration [id number] 04/04/2012 09:00:00 Document Registration [id number] 10/30/2011 20:15:00 Document Registration [id number] 04/22/2011 14:03:00 Document Registration [id number] 11/10/2010 10:02:00 Document Registration [id number] 08/01/2014 13:27:00 08/01/2014 23: 59:59 CLS Outpatient EDITH CADENA APRNNDA S [id number] 04/11/2014 09:40:00 04/11/2014 23: 59:59 CLS Outpatient EDITH CADENA APRNNDA S [id number] 01/07/2014 11:04:00 01/07/2014 23: 59:59 CLS Outpatient EDITH CADENA APRNNDA S [id number] 11/14/2013 15:42:00 11/14/2013 23: 59:59 CLS Outpatient TAMMI TEMPLE MAYELIN S [id number] 11/14/2013 15:42:00 11/14/2013 23: 59:59 CLS Outpatient LES CAT, OLI [id number] 06/28/2013 10:28:00 06/28/2013 23: 59:59 CLS Outpatient EDITH CADENA APRNNDA S [id number] 02/15/2013 17:43:00 02/15/2013 23: 59:59 CLS Outpatient EDITH CADENA APRNNDA S [id number] 09/12/2012 10:03:00 09/12/2012 23: 59:59 CLS Outpatient EDITH CADENA APRNNDA S [id number] 05/16/2012 15:56:30 05/16/2012 23: 59:59 CLS Outpatient MAYELIN CADENA APRN [id number] 05/16/2012 14:18:00 05/16/2012 23: 59:59 [facility] Outpatient MAYELIN CADEAN APRN [id number] 11/02/2012 12:06:00 Document Registration
--- OUTSIDE RECORDS SUMMARY | 2017-04-14 15:13 | XMS REPORT ---
Author OLI [facility] eClinical[employer] Address Unknown Phone Unavailable Care Team Providers Care Coconut Boiler Name Role Phone OLI SALDANA Unavailable Allergies, Adverse Reactions, Alerts Substance Reaction Event Type Grapefruit Flavor Info Not Available Drug Allergy Avelox Info Not Available Drug Allergy Problems Problem Type Condition Code Onset Dates Condition Status Problem Failure to thrive 783.41 Active Assessment COPD exacerbation J44.1 Active Problem Anxiety disorder, unspecified F41.9 Active Problem Chronic pain syndrome G89.4 Active Problem COPD exacerbation J44.1 Active Problem Insomnia, unspecified 780.52 Active Problem Chronic pain syndrome 338.4 Active Problem Anxiety state, unspecified 300.00 Active Problem Coronary atherosclerosis of unspecified type of vessel, [place] or graft 414.00 Active Medications Medication Code System Code Instructions Start Date End Date Status Dosage Xanax [facility] [address]-59 1 MG Orally 3 times a day November 19, 2014 1 tablet as needed Coreg [facility] [address]-52 12.5 mg Apr 23, 2012 1 tablet by Oral route 2 times per day Oxygen NDC 0 2 LPM prn at bedtime not defined Seroquel XR [facility] [address]-31 50 mg 1 TABLET IN THE EVENING ONCE A DAY ORALLY [address] [facility] 9[address]2619 81 mg November 08, 2011 take 1 tablet (81 mg ) by oral route once daily Hydrocodone-Acetaminophen [facility] [address]-71 10-325 MG Orally every 6 hrs November 19, 2014 1 tablet as needed ProAir HFA [facility] [address]-78 108 (90 Base) MCG/ACT Inhalation every 4 hrs 2 puffs as needed Simvastatin [facility] [address]-84 40 MG Orally Once a day 1 tablet in the evening Isosorbide Mononitrate CR [facility] [address]-69 30 MG Orally Once a day [address] [facility] [address]-30 4 MG Orally 3 times a day prn nausea Sep 04, [address] [facility] 90649108440 160-4.5 MCG INHALE 2 PUFFS BY MOUTH TWICE DAILY Spiriva HandiHaler [facility] 17205885675 18 MCG Inhalation Once a day [address] [facility] [address]-57 150 MG Orally Twice a day [address] [facility] [address]-07 10 MG Orally Once a day [address] [facility] 66454021935 0.83 USE 1 VIAL IN NEBULIZER FOUR TIMES DAILY Albuterol [facility] 0 2.5 mg /3 mL (0.083 %) Aug 01, 2014 2.5 mg by Inhalation route 4 times per day Sertraline HCl [facility] [address]-12 50 MG Orally Once a day 1 tablet Procedures Procedure Coding System Code Date Office Visit, Est Pt., Level 2 CPT-4 06074 May 06, 2016 Vital Signs Date/Time: May 06, 2016 Cardiac Monitoring Heart Rate 94 bpm Weight 113 lbs Height 68 in BMI 17.18 Index Blood Pressure Diastolic 80 mmHg Blood Pressure Systolic 140 mmHg Results No Known Results Summary Purpose eClinicalWorks Submission
[2017-04-14] MEDS ORDERED: NS IV 1000 ML 1,000 ML IV SCH (15:30)
[2017-04-14] MEDS ORDERED: CATHETER FLUSH 10 ML SYR IV PRN (15:30)
[2017-04-14 15:49] LABS: MEAN PLATELET VOLUME 9.2 FL (7.4-10.4); RED BLOOD COUNT 4.81 10^6/uL (4.35-5.85); RED CELL DISTRIBUTION WIDTH 13.9 % (10.0-14.5)
[2017-04-14 15:57] LABS: INR 0.9 (0.8-1.4); PROTHROMBIN TIME PATIENT 12.7 SEC (12.2-14.7)
[2017-04-14 16:05] LABS: ANION GAP 11 MMOL/L (5-14); BLOOD UREA NITROGEN 21 MG/DL (7-18); BUN/CREATININE RATIO 26; CALCIUM 9.3 MG/DL (8.5-10.1); CARBON DIOXIDE 29 MMOL/L (21-32); CHLORIDE 103 MMOL/L (98-107); CREATININE SERUM 0.81 MG/DL (0.60-1.30); GFR ESTIMATED > 60; GLUCOSE 90 MG/DL (70-105); SODIUM 143 MMOL/L (135-145)
[2017-04-14] MEDS ORDERED: NS IV 1000 ML 1,000 ML ONE (16:06)
[2017-04-14] MEDS ORDERED: HEParin (CATH LAB) 2,000 ML IV ONE (16:06)
[2017-04-14] MEDS ORDERED: MIDAZOLAM 5 MG/5 ML (VERSED) VIAL ONE ×2 (16:11→16:53)
[2017-04-14] MEDS ORDERED: fentaNYL INJECTION 100 MCG/2 ML AMP ONE ×2 (16:11→16:54)
--- NOTE | 2017-04-14 16:46 | Cardiac Procedure Note-CS/ASA ---
Pre-Procedure Note Pre-Op Procedure Note H&P Reviewed The H&P was reviewed, patient examined and no changes noted. Date H&P Reviewed: Apr 14, 2017 Time H&P Reviewed: 16:45 Conscious Sedation Pre-Proced Time Reviewed: 16:45 ASA Class: 3 Airway Mallampati Classification: ([place] appropriate class) I. II. III, IV Lungs Heart ASA score ASA 1: a normal healthy patient ASA 2: a patient with a mild systemic disease (mid diabetes, controlled hypertension, obesity x ASA 3: a patient with a severe systemic disease that limits activity (angina , COPD, prior Myocardial infarction) ASA 4: a patient with an incapacitating disease that is a constant threat to life (CHF, renal failure) ASA 5: a moribund patient not expected to survive 24 hrs. (ruptured aneurysm) ASA 6: a declared brain patient whose organs are being harvested. For emergent operations, add the letter E after the classification Grade 3 Sedation Plan: Analgesia, Amnesia, Plan communicated to team members, Discussed options with patient/fam, Discussed risks with patient/fam Note The patient is an appropriate candidate to undergo the planned procedure, sedation, and anesthesia. The patient immediately re-assessed prior to indication. KYLIE PAINTER MD Apr 14, 2017 16:46
[2017-04-14] MEDS ORDERED: PATIENT MAY USE OWN MEDS, ALL PO SCH (17:15)
[2017-04-14] MEDS ORDERED: INFLUENZA TRIvalent 2017-2018 0.5 ML/45 MCG SYR IM ONE (17:15)
--- NOTE | 2017-04-14 17:22 | Cardiac Cath Report ---
Cardiac Cath Report Physician (s)/Sales Account Representative (s) Physician KYLIE PAINTER MD Pre-Procedure Diagnosis Pre-Procedure Diagnosis: chest pain, coronary artery disease Post-Procedure Note Procedure Start Date: Apr 14, 2017 Procedure Start Time: 17:00 Name of Procedure: left heart catheterization Findings/Procedure Note PROCEDURE NOTE: After explaining the procedure to the patient, all pros and cons were explained, all questions were answered. The patient signed the consent and then she was placed on the cardiac catheterization laboratory. The patient was placed on the cardiac catheterization laboratory. Groin was prepped SL fashion local anesthesia was used. Sheath placed in the right artery, I was unable to advance it, angiogram showed small dissection, sheath was removed and manual pressure applied I approached the left groin, 6 Swedish sheath was placed without complications. [place] right and left catheter were used to access the coronary system. Pigtail was used to access the left ventricular cavity. Left ventriculogram was done [place] right was used to cross over to the right lower extremity, I advanced just to the proximal common iliac on the right and did angiogram evaluated the right iliac and femoral artery that appeared to be patent with no abnormality. At the end of the procedure the sheath was removed. Closure device was used FINDINGS: Hemodynamics LV 141/13 and diastolic pressure of 13 Aorta 132/69 mean of 98 ANATOMY: Left Main is mildly calcified with mild disease Left Anterior Descending is heavily calcified with mild to moderate disease nonobstructive disease Left Circumflex is mildly calcified with mild disease Right Coronory Artery iscalcified artery, stent is patent with 40 percent instent restenosis, no change from baseline LV Gram showed inferior wall hypokinesia, ejection fraction 40 percent CONCLUSION: 1. 40 percent in-stent restenosis in the right coronary artery calcified artery 2. Heavily calcified left carotid system with tortuous LAD, mild to moderate disease nonobstructive disease 3. Inferior wall hypokinesia with estimated ejection fraction 40 percent DISCUSSION AND RECOMMENDATION: Continue with medical therapy no intervention is warranted Anesthesia Type: Conscious Sedation Estimated blood loss (mL): 15 ml Contrast Amount: 60 ml Total Radiation Dose: 174 mGy Post-Procedure Diagnosis (1) Chest pain Qualifiers: Qualified Codes: I20.8 - Other forms of angina pectoris (2) CAD (coronary artery disease) Qualifiers: Qualified Codes: I25.118 - Atherosclerotic heart disease of [place] coronary artery with other forms of angina pectoris (3) HTN (hypertension) Qualifiers: Qualified Codes: I10 - Essential (primary) hypertension (4) CHF (congestive heart failure), NYHA class II Qualifiers: Qualified Codes: I50.22 - Chronic systolic (congestive) heart failure (5) Mixed hyperlipidemia KYLIE PAINTER MD Apr 14, 2017 17:22
[2017-04-14] MEDS ORDERED: APIX5TAB PO (17:43)
[2017-04-14] MEDS ORDERED: QUET50TA76 PO (17:43)
[2017-04-14] MEDS ORDERED: PRD10T PO (17:43)
[2017-04-14] MEDS ORDERED: METO-272 PO (17:47)
[2017-04-14] MEDS: NS IV 1000 ML 1,000 ML IV SCH ×2 (18:22→23:25)
[2017-04-14] MEDS ORDERED: ALPRAZolam 0.5 MG (XANAX) TAB PO PRN (19:00)
[2017-04-14] MEDS ORDERED: RT-ALBUTEROL SULF 2.5 MG/3 ML PRE-MIX VIAL IH PRN (19:00)
[2017-04-14] MEDS ORDERED: ALPRAZolam 1 MG (XANAX) TAB PO PRN (19:30)
[2017-04-14] MEDS: ADVAIR 500/50 DISKUS IH SCH (20:16)
[2017-04-14] MEDS ORDERED: QUETIAPINE 50 MG PO SCH (21:00)
[2017-04-14] MEDS ORDERED: MONTELUKAST 10 MG (SINGULAIR) TAB PO SCH (21:00)
[2017-04-14] MEDS ORDERED: ALPRAZOLAM 0.5 MG PO SCH (21:00)
[2017-04-14] MEDS ORDERED: SIMvastatin 40 MG (ZOCOR) TAB PO SCH (21:00)
[2017-04-14] MEDS ORDERED: RT-ALBUTEROL HFA (VENTOLIN) PER PUFF IH SCH (21:00)
[2017-04-15] VITALS (10 sets, daily range): BP systolic 91–129; BP diastolic 64–88
[2017-04-15] MEDS ORDERED: predniSONE 10 MG TAB PO SCH (07:00)
[2017-04-15] MEDS ORDERED: RT-SYMBICORT 160/4.5 MCG INHALER PER PUFF IH SCH (08:00)
[2017-04-15] MEDS ORDERED: TIOTROPIUM BROMIDE (SPIRIVA) 5'S INHALER IH SCH (08:00)
[2017-04-15] MEDS: ADVAIR 500/50 DISKUS IH SCH (08:45)
[2017-04-15] MEDS ORDERED: ASPIRIN E.C. 81 MG (ECOTRIN) TAB PO SCH (09:00)
[2017-04-15] MEDS ORDERED: QUETIAPINE FUMARATE 50 MG PO SCH (09:00)
[2017-04-15] MEDS ORDERED: lisINopril 5 MG (PRINIVIL) TABLET PO SCH (09:00)
--- NOTE | 2017-04-15 09:33 | Cardiology Progress Note ---
Subjective Date Seen by Provider: Apr 15, 2017 Time Seen by Provider: 09:31 Subjective/Events-last exam patient is laying down in bed, feeling well, ready to go home but she will not have a ride until 4 p.m. Review of Systems General: No Chills, No Night Sweats, No Fatigue, No Malaise, No Appetite, No Other HEENT: No Head Aches, No Visual Changes, No Eye Pain, No Ear Pain, No Dysphasia , No Sinus Congestion, No Post Nasal Drip, No Sore Throat, No Other Pulmonary: No Dyspnea, No Cough, No Pleuritic Chest Pain, No Other Cardiovascular: No: Chest Pain, Palpitations, Orthopnea, Paroxysmal Noc. Dyspnea, Edema, Lt Headedness, Other Objective-Cardiology Exam Last Set of Vital Signs Vital Signs 04/15/17 04/15/17 04/15/17 06:00 07:00 08:00 Pulse 82 Resp 21 B/P (MAP) 122/83 Pulse Ox 96 O2 Delivery Room Air Capillary Refill : Less Than 3 Seconds I&O Intake and Output 04/16/17 00:00 Intake Total 100 ml Output Total 400 ml Balance -300 ml Intake Oral 100 ml Output Urine Total 400 ml General: Alert, Oriented X3, Cooperative HEENT: Atraumatic, PERRLA Neck: Supple, No JVD, No Thyromegaly Lungs: Clear to Auscultation, Normal Air Movement Heart: Regular Rate, Normal S1, Normal S2, No Murmurs Abdomen: Normal Bowel Sounds, Soft, No Tenderness, No Hepatosplenomegaly, No Masses Extremities: No Clubbing, No Cyanosis, No Edema, Normal Pulses, No Tenderness/ Swelling Skin: No Rashes, No Breakdown, No Significant Lesion Neuro: Normal Gait, Normal Speech, Strength at 5/5 X4 Ext, Normal Tone, Sensation Intact Psych/Mental Status: Mental Status NL, Mood NL Results Lab Laboratory Tests 04/14/17 15:40 A/P-Cardiology Admission Diagnosis (1) Chest pain Qualifiers: Qualified Codes: I20.8 - Other forms of angina pectoris Status: Chronic (2) CAD (coronary artery disease) Qualifiers: Qualified Codes: I25.118 - Atherosclerotic heart disease of [place] coronary artery with other forms of angina pectoris Status: Chronic Permanent Comment: continue with medical therapy. No intervention is warranted Last Edited By: Kylie Mueller on Apr 15, 2017 09:32 (3) HTN (hypertension) Qualifiers: Qualified Codes: I10 - Essential (primary) hypertension Status: Chronic Permanent Comment: continue with home medications and monitor as an outpatient Last Edited By: Kylie Mueller on Apr 15, 2017 09:32 (4) CHF (congestive heart failure), NYHA class II Qualifiers: Qualified Codes: I50.22 - Chronic systolic (congestive) heart failure Status: Chronic Permanent Comment: chronic compensated left ventricular systolic dysfunction, ischemic and nonischemic heart failure. Currently asymptomatic. Continue current medications, follow-up as an outpatient Last Edited By: Kylie Mueller on Apr 15, 2017 09:33 (5) Mixed hyperlipidemia Status: Chronic Clinical Quality Measures DVT/VTE Risk/Contraindication: Risk Factor Score Per Nursin RFS Level Per Nursing on Admit: 3=High KYLIE MUELLER MD Apr 15, 2017 09:33
--- NOTE | 2017-04-15 09:36 | Discharge Inst-Post CATH ---
Discharge Inst-CATH Post Cardiac Cath D/C Inst Follow Up/Plan Appointment with Dr. Mueller's office in 2-4 weeks CARDIAC CATH DISCHARGE INSTRUCTIONS *Hold Metformin for 48 hours post heart cath. ACTIVITY * Go Home directly and rest. * Limit activity of the leg (or wrist if it was used) for 7 days including aerobics, swimming, jogging, bicycling, etc. * Restrict stair-climbing for 7 days if possible, if not, climb up with your non -cath leg, then bring together on the same step. * Avoid lifting, pushing, pulling or excessive movement of the affected extremity for 7 days. * Customary sexual activity may be resumed after 2 days-use caution not to use a position that strains or causes pain to the affected extremity. * No driving for 24 hours. * NO SMOKING. * Avoid straining for bowel movements for 7 days. * Gentle walking on level ground is allowed. * Returning to work will depend on the type of procedure and the results. Your doctor will discuss this with you. CALL YOUR DOCTOR FOR ANY OF THE FOLLOWING: *If bleeding from the puncture site occurs- Apply gentle pressure to site with clean cloth and call your doctor or EMS. * If a knot or lump forms under the skin, increases in size, or causes pain. * If bruising appears to be worsening or moving further down your leg instead of disappearing. * Temperature above 101 F. CARE OF YOUR GROIN INCISION; * Bruising or purple discoloration of the skin near the puncture site is common. * You may shower only, no bathtub bathing for 5 days. Be careful to avoid slipping as your leg may feel stiff. * If a closure device was used on your femoral artery, please see the attached guide regarding care of the device and your leg. * REMOVE the dressing from your groin the next day after your procedure in the shower. CARE OF YOUR WRIST INCISION; * Bruising or purple discoloration of the skin near the puncture site is common. * You may shower. * DO NOT submerge wrist. * Remove dressing in 24 hours. KYLIE MUELLER MD Apr 15, 2017 09:36
[2017-04-15] MEDS ORDERED: HYDROcodone/APAP 5 MG/325 MG (LORTAB) TAB PO PRN (09:45)
[2017-04-15] MEDS: NS IV 1000 ML 1,000 ML IV SCH (13:14)
[2017-04-15] MEDS ORDERED: APIXABAN 5 MG (ELIQUIS) TABLET PO SCH (21:00)
[2017-04-16] MEDS ORDERED: meTOproloL SUCCINATE 50 MG (TOPROL XL) TAB PO SCH (09:00)
== END 2017-04-15 16:25 | disposition home or self-care (01) ==
LOC: ICU 15:06 → UNDOADMOB 15:06 → ICU 15:06 → CATH 15:06 → UNDODISOB 04-15 16:25
PROVIDERS: ATTEND Internal Medicine Cardiovascular Disease
DX: I25.118 Atherosclerotic heart disease of native coronary artery with other forms of angina pectoris (principal); T82.855A Stenosis of coronary artery stent, initial encounter; I25.84 Coronary atherosclerosis due to calcified coronary lesion; I10 Essential (primary) hypertension; I50.22 Chronic systolic (congestive) heart failure; J44.9 Chronic obstructive pulmonary disease, unspecified; E78.5 Hyperlipidemia, unspecified; K21.9 Gastro-esophageal reflux disease without esophagitis; H91.90 Unspecified hearing loss, unspecified ear; Z79.899 Other long term (current) drug therapy; Z79.01 Long term (current) use of anticoagulants; Z87.891 Personal history of nicotine dependence
CPT/HCPCS: 36415; 80048; 85027; 85610; 85730; 93005; 93458

== ENCOUNTER 2017-07-21 10:09 | Outpatient (RCR) | payer MEDICAID ==
[~2017-07-21 10:09] MED LIST changes: +APIX5TAB PO; +METO-370 PO; +PRD10T PO; +QUET50TA76 PO
== END 2017-10-19 | disposition home or self-care (01) ==
LOC: ONC 10:09
PROVIDERS: ATTEND Internal Medicine Hematology & Oncology
DX: I26.99 Other pulmonary embolism without acute cor pulmonale (principal); I11.0 Hypertensive heart disease with heart failure; I50.22 Chronic systolic (congestive) heart failure; J44.9 Chronic obstructive pulmonary disease, unspecified; M19.91 Primary osteoarthritis, unspecified site; I27.20 Pulmonary hypertension, unspecified; F10.20 Alcohol dependence, uncomplicated; Z79.82 Long term (current) use of aspirin; Z79.899 Other long term (current) drug therapy; Z87.891 Personal history of nicotine dependence
CPT/HCPCS: 99214